=== PATIENT | male | born 1945 | race Hispanic/Latino ===

== ENCOUNTER 2019-04-06 11:40 | Outpatient (CLI) | payer OTHER ==
--- NOTE | 2019-04-06 12:30 | XRay Report ---
RIGHT KNEE, 2 VIEWS INDICATION: M17.11 UNILATERAL PRIMARY OSTEROARTHRITIS RIGHT KNEE/M25.561RKNEE. COMPARISON: None. IMPRESSION: No acute osseous or soft tissue abnormality. Normal bone mineralization. Moderate ost eoarthritic changes are identified in all 3 compartments of the knee. The medial compartment is most affected. Small enthesophyte projects superiorly at the insertion site of the quadriceps tendon and p atellar tendon. No significant joint effusion is identified. Signer Name: Fab Wolff Jr, MD Signed: 04/06/2019 12:25 PM Workstation Name: [id number]
== END 2019-04-06 11:41 | disposition home or self-care (01) ==
LOC: XRAY 11:40
PROVIDERS: ATTEND Orthopaedic Surgery
DX: M17.11 Unilateral primary osteoarthritis, right knee (principal); M76.9 Unspecified enthesopathy, lower limb, excluding foot

== ENCOUNTER 2019-04-19 07:24 | Inpatient (IN) | payer OTHER ==
[2019-04-18 09:56] LABS: Basophils # (Auto) 0.1 K/mm3 (0.0-0.1); Basophils % (Auto) 1.1 % (0.0-1.8); Eosinophils # (Auto) 0.2 K/mm3 (0.0-0.4); Eosinophils % (Auto) 2.6 % (0.0-4.3); Hematocrit 43.6 % (35.5-45.6); Hemoglobin 14.8 gm/dl (11.8-15.2); Lymphocytes # (Auto) 1.7 K/mm3 (1.2-5.4); Lymphocytes % (Auto) 19.2 % (13.4-35.0); Mean Corpuscular HGB Conc 34 % (32-34); Mean Corpuscular Volume 91 fl (84-94); Monocytes # (Auto) 0.7 K/mm3 (0.0-0.8); Monocytes % (Auto) 8.6 % (0.0-7.3); Platelet Count 282 K/mm3 (140-440); Red Blood Count 4.79 M/mm3 (3.65-5.03); Red Cell Distribution Width 15.3 % (13.2-15.2)
--- NOTE | 2019-04-18 09:56 | Anesthesia Consultation ---
Anesthesia Consult and Med Hx Date of service: 04/18/19 - Airway Anesthetic Teeth Evaluation: Good ROM Head & Neck: Adequate Mental/Hyoid Distance: Adequate Mallampati Class: Class II Intubation Access Assessment: Good - Pulmonary Exam CTA: Yes - Cardiac Exam Cardiac Exam: RRR - Pre-Operative Health Status ASA Pre-Surgery Classification: ASA3 Proposed Anesthetic Plan: General Nerve Block: Adductor Canal - Pulmonary Hx Smoking: Yes (STOPPED X 20 YRS (2-3 PPD X 30 YRS)) Hx Sleep Apnea: Yes (DX SLEEP APNEA WITH CPAP USE.) - Cardiovascular System Hx Hypertension: No (TAKES LISINOPRIL FOR KIDNEY PROTECTION ONLY) - Central Nervous System Hx Back Pain: Yes (NECK STIFFNESS) Hx Psychiatric Problems: Yes (PTSD- COMBAT RELATED) - Hematic Hx Anemia: Yes (ON DAILY IRON) - Other Systems Hx Cancer: No - Additional Comments Anesthesia Medical History Comments: DM, BEAU , elevated BMI for TKA under GA and Adductor canal block
[2019-04-18 10:10] LABS: Alanine Aminotransferase 19 units/L (7-56); Albumin 4.4 g/dL (3.9-5); BUN/Creatinine Ratio 20; Blood Urea Nitrogen 20 mg/dL (9-20); Calcium 9.9 mg/dL (8.4-10.2); Hemolysis Index 12
[~2019-04-19 07:24] MED LIST: BACTERIOSTATIC SODIUM CHLORIDE 0.9% 30 ML VIAL INFILTRATI ONE; BUPIVACAINE/PF (0.5%) 5 MG/1 ML 30 ML VIAL INFILTRATI ONE; KETOROLAC 30 MG/1 ML INJ IV ONE; MIDAZOLAM 2 MG/2 ML INJ IV NR; MORPHINE 10 MG/1 ML INJ IM ONE; ceFAZolin/STERILE WATER 2 GM/20 ML SYRINGE IV NR; fentaNYL 100 MCG/2 ML INJ IV NR
--- NOTE | 2019-04-19 08:21 | Anesthesia Day of Surgery ---
Anesthesia Day of Surgery - Day of Surgery Patient Examined: Yes Patient H&P Reviewed: Yes Patient is NPO: Yes
[2019-04-19] MEDS ORDERED: BUPIVACAINE-EPINEPHRINE/PF 0.5%-1:200,000 (30 ML) VIAL INFILTRATI ONE (08:27)
[2019-04-19] MEDS: SODIUM CHLORIDE 0.9% 1000 ML 1,000 ML IV SCH (08:30)
[2019-04-19] MEDS ORDERED: MIDAZOLAM 2 MG/2 ML INJ IV NR (09:00)
[2019-04-19] MEDS: fentaNYL 100 MCG/2 ML INJ IV NR ×3 (09:00→13:49)
[2019-04-19] MEDS ORDERED: SODIUM CHLORIDE 0.9% 250ML 250 ML ONE (09:10)
[2019-04-19] MEDS ORDERED: KETOROLAC 30 MG/1 ML INJ ONE (09:10)
[2019-04-19] MEDS ORDERED: BUPIVACAINE/PF (0.5%) 5 MG/1 ML 30 ML VIAL INFILTRATI ONE (09:10)
[2019-04-19] MEDS ORDERED: MORPHINE 10 MG/1 ML INJ ONE (09:10)
[2019-04-19] MEDS ORDERED: TRANEXAMIC ACID 1,000 MG/10 ML ONE (09:10)
[2019-04-19] MEDS ORDERED: SODIUM CHLORIDE 0.9% 100 ML ONE (09:11)
[2019-04-19] MEDS ORDERED: PROPOFOL 200 MG/20 ML VIAL IV ONE (10:30)
[2019-04-19] MEDS ORDERED: HYDROmorphone 1 MG/1 ML INJ ONE (10:30)
[2019-04-19] MEDS ORDERED: LIDOCAINE MPF (2%) 20 MG/1 ML VIAL 5 ML ONE (10:30)
[2019-04-19] MEDS ORDERED: SODIUM CHLORIDE 0.9% IRRIG SOLN 2000 ML IR ONE (11:17)
[2019-04-19] MEDS ORDERED: WATER FOR IRRIG STERILE 1,000 ML BOTTLE IR ONE (11:17)
[2019-04-19] MEDS ORDERED: LACTATED RINGERS 1,000 ML ONE (12:33)
--- NOTE | 2019-04-19 15:04 | Post Anesthesia Evaluation ---
- Post Anesthesia Evaluation Patient Participated: Yes Airway Patent: Yes Stable Respiratory Function: Yes Nausea/Vomiting: No Temp > 96.8F: Yes Pain Manageable: Yes Adequeate Hydration: Yes Anesthesia Complications: No Block Receding Appropriately: Yes Patient on Ventilator: No
--- NOTE | 2019-04-19 16:16 | Procedure Note ---
Date of procedure: 04/19/19 Pre-op diagnosis: severe arthritis right knee Post-op diagnosis: same Procedure: Right total knee arthroplasty Procedure The patient was brought to the or after the femoral nerve block and preoperative holding, he was placed in the or table in supine position following induction with Mac anesthesia the patient's right lower extremity was prepped and draped in the usual sterile manner. A timeout procedure was done to identify the patient and the correct operative site The leg was exsanguinated followed by insufflation of the pneumatic tourniquet to 300 mmHg. The midline incision was made centered over the patella this is taken down distally towards due to multiple medical incision was carried down sharply through skin and subcutaneous A medial parapatellar approach was used to gain access to the knee joint. The knee was flexed to 90 following routine examination revealed typical osteoarthritic changes where along the medial lateral compartments with peripheral osteophytes and bare bone in some places followinga large drill bit was used to enter the distal femoral canal following this the distal femoral cutting was applied approximately 8-9 mm of bone was resected next the attention was turned to the proximal tibia using the external alignment again 8-9 mL of proximal tibia was resected care was taken to protect the medial and lateral collateral ligaments the cruciate ligaments were sacrificed longus sizing of the femoral component was performed a # 6 femoral component was selected this was followed by application of the 4 in 1 cutting block care was taken to resect the anterior posterior as well as solution at this at this point in time the knee was sized A flexion and extension Of 10 mm was selected this was followed by application of the trial components the knee was then taken to or range of motion and was found to be stable following this fixation holes were applied to both the distal femur and proximal tibia care was taken to remove the medial lateral menisci as well as any excess bone and soft tissue debris the knee was then copiously irrigated using pulse lavage The bone cement was mixed the bone bleeding surfaces were wiped dry using sterile gauze for menisci tibial component was inserted using the cement technique the 10 mm polyethylene spacer was applied and secured this was followed by placement of the femoral component again excess cement was removed the knee was then held in flexion ostomy extension until the cement hardened following hardening of cement again a second look was performed and the residual soft tissue N cement debris were removed at this time the knee was then taken through a range of motion and was found to be stable next the medial patellar retinaculum incision was repaired using #1 Vicryl in interrupted [id number] suture pattern the subcutaneous and skin w ere closed in a routine manner. Dressings were applied the patient tolerated the procedure the retinal complications he was then taken to postanesthesia recovery Anesthesia: MAC, regional Surgeon: SRI FIELDS Visual Journalist: DYLAN HAHN Estimated blood loss: 50-100ml Pathology: none Condition: stable Disposition: PACU
[2019-04-19] MEDS: MORPHINE 4 MG/1 ML INJ IV PRN ×2 (20:08→22:39)
[2019-04-19] MEDS: ONDANSETRON 4 MG/2 ML INJ IV PRN (22:44)
[2019-04-20] MEDS: HYDROcodone/ACETAMINOPHEN 5-325 MG TAB PO PRN ×3 (00:53→12:44)
[2019-04-20] MEDS: SODIUM CHLORIDE 0.9% 1000 ML 1,000 ML IV SCH (00:56)
[2019-04-20] MEDS: MORPHINE 4 MG/1 ML INJ IV PRN ×3 (02:19→21:40)
[2019-04-20 07:39] LABS: Hematocrit 36.3 % (35.5-45.6); Hemoglobin 12.3 gm/dl (11.8-15.2)
[2019-04-20] MEDS: ENOXAPARIN 40 MG/0.4 ML INJ SUB-Q SCH (10:08)
--- NOTE | 2019-04-20 10:57 | XRay Report ---
RIGHT KNEE 2 VIEWS INDICATION / CLINICAL INFORMATION: post op evaluation. COMPARISON: Right knee x-ray 04/06/2019 FINDINGS: There is a satisfactory postop appearance of the new right total knee arthroplasty with intra-articul ar gas. No fracture. Signer Name: Nataanel Finley MD Signed: 04/19/2019 3:13 PM Workstation Name: [id number]
--- NOTE | 2019-04-20 18:31 | Progress Note ---
Assessment and Plan s/p right TKR post op day 1 doing well hopefully dc soon Subjective Date of service: 04/20/19 Interval history: no major c/o's noted... Objective Vital signs: Vital Signs - 12hr 04/20/19 04/20/19 04/20/19 07:47 10:00 11:25 Temperature 98.1 F 98.9 F Pulse Rate 87 89 Respiratory 18 18 Rate Blood Pressure 123/59 Blood Pressure 170/78 [Left] O2 Sat by Pulse 95 98 94 Oximetry 04/20/19 16:00 Temperature 98.7 F Pulse Rate 87 Respiratory 18 Rate Blood Pressure Blood Pressure 159/79 [Left] O2 Sat by Pulse 95 Oximetry Incision: clean and dry Weight bearing status: as tolerated - Labs CBC & BMP: 04/20/19 06:57 04/18/19 09:15
[2019-04-20] MEDS: ONDANSETRON 4 MG/2 ML INJ IV PRN (21:41)
[2019-04-21] MEDS: HYDROcodone/ACETAMINOPHEN 5-325 MG TAB PO PRN ×2 (01:59→16:20)
[2019-04-21] MEDS: ENOXAPARIN 40 MG/0.4 ML INJ SUB-Q SCH (11:32)
[2019-04-21] MEDS: MORPHINE 4 MG/1 ML INJ IV PRN (11:32)
[2019-04-21 12:47] VITALS: BP 142/77
--- NOTE | 2019-04-22 20:51 | Discharge Summary ---
Providers - Providers Date of Admission: 04/19/19 07:24 Date of discharge: 04/21/19 Attending physician: SRI FIELDS MD 04/19/19 13:07 Consult to Case Management [CONS] Routine Services Needed at Discharge: Home Health Services Physical Therapy DME Equipment Notified:: cm notified 04/19/19 13:11 Physical Therapy Evaluation and Treat [CONS] Routine Comment: Reason For Exam: post op evaluation Weight bearing status?: Full wt bearing Assistive devices?: Yes If so list: Walker Primary care physician: [facility] Hospitalization Reason for admission: right knee pain Condition: Stable Procedures: Right total knee replacement Hospital course: 73 y/o male with long history of osteoarthritis both knees, right knee worse. Tried multiple conservative treatment regimes w/o significant relief. Plain xrays taken show evidence of severe osteoarthritis. Following admission to hospital he was taken to the OR where a right total knee replacement done w/o complications. Post op seen by physical therapy and given proper post op instructions. Case management services utilized for home health and DME's supplies... Disposition: DC/- HOME UNDER HOME [facility] Core Measure Documentation - Palliative Care Palliative Care/ Comfort Measures: Not Applicable - Core Measures Any of the following diagnoses?: none - VTE Discharge Requirements Deep Vein Thrombosis/Pulmonary Embolism Present on Admission: No Has pt received <5 days of overlap therapy or INR<2.0: Yes Anticoagulant overlap therapy prescribed at discharge: Yes - Acute [place] Discharge Requirements Aspirin at discharge: No Reason for no aspirin on DC: Medical contraindication Exam - Constitutional Vitals: Temp Pulse Resp BP Pulse Ox 98.2 F 93 H 20 142/77 96 04/21/19 11:47 04/21/19 11:47 04/21/19 11:47 04/21/19 11:47 04/21/19 11:47 General appearance: Present: no acute distress, well-nourished - EENT Eyes: Present: PERRL ENT: hearing intact, clear oral mucosa - Neck Neck: Present: supple, normal ROM - Respiratory Respiratory effort: normal Respiratory: bilateral: CTA - Cardiovascular Heart Sounds: Present: S1 & S2. Absent: rub, click - Extremities Extremities: pulses symmetrical, No edema Peripheral Pulses: within normal limits - Abdominal General gastrointestinal: Present: soft, non-tender, non-distended, normal bowel sounds Male genitourinary: Present: normal - Integumentary Integumentary: Present: clear, warm, dry - Musculoskeletal Musculoskeletal: gait normal, strength equal bilaterally - Psychiatric Psychiatric: appropriate mood/affect, intact judgment & insight - Neurologic Neurologic: CNII-XII intact, moves all extremities Plan Activity: advance as tolerated Weight Bearing Status: Weight Bear as Tolerated Diet: low fat Follow up with: [facility] [Primary Care Provider] - 7 Days Prescriptions: Apixaban [Eliquis] 5 mg PO DAILY #30 tablet HYDROcodone/APAP 7.5-325 [Cosby 7.5-325 mg TAB] 1 each PO Q6HR PRN #30 tablet PRN Reason: Pain
== END 2019-04-21 17:33 | disposition home health service (06) | DRG 470 ==
LOC: 3A 07:24 → 3B-SURG 14:04
PROVIDERS: ADMIT Orthopaedic Surgery; ATTEND Orthopaedic Surgery
PROC: 0SRC0J9 Replacement of Right Knee Joint with Synthetic Substitute, Cemented, Open Approach (ICD-10-PCS; principal; 2019-04-19)
DX: M17.11 Unilateral primary osteoarthritis, right knee (principal); G47.30 Sleep apnea, unspecified; Z87.891 Personal history of nicotine dependence
CPT/HCPCS: 36415; 64450; 80053; 82962; 85014; 85018; 85025; 94760; G0378; A4217; C1776; J0690; J1170; J1650; J1885; J2250; J2270; J2405; J2704; J3010; J7030; J7050; J7120